=== PATIENT | female | born 1965 | race Caucasian/White ===

== ENCOUNTER → 2016-09-11 | Outpatient (CLI) | payer OTHER ==
[~2016-09-11] MED LIST: HYDROCHLOROTHIA25 MG PO; IRON1 TAB PO; LISINOPRIL10 MG PO; MULTIVITAMIN1 UDCAP PO; NASONEX17 GM; ZYRTEC10 M2 PO
--- NOTE | ~2016-09-11 | MY29 ---
[facility] A Service of [facility] RADIOLOGY TEXT RESULTS PATIENT: LAVINIA MORELOS LOCATION: [facility] : 63 UNIT #: [id number] AGE: [address]: Migdalia Zayas MD SEX: F ORDER DR: [id number] [facility] [address] [place], [place] [address] [id number] MR#: [id number] Acc #: [id number] NAME: LAVINIA MORELOS : 1965 SEX: F STUDY DATE/TIME: 09/11/2016 12:14 UNIT: [facility] ROOM: STUDY DESCRIPTION: MY CORTES SCREENING W/ CAD BILAT Attending Physician: Migdalia Zayas M.D. Referring Physician: Migdalia Zayas M.D. Ordering Physician: Migdalia Zayas M.D. Primary Care Physician: Migdalia Zayas M.D. MEDICAL IMAGING REPORT This report is preliminary unless electronic signature is present EXAM Bilateral digital screening mammogram with CAD. INDICATIONS Breast cancer screening. 50-year-old asymptomatic female. No personal or family history of breast cancer. COMPARISON STUDIES December 11, 2014, December 09, 2013, August 11, 2012, August 03, 2009, December 03, 2006. FINDINGS There are scattered fibroglandular tissues. No suspicious findings are present. IMPRESSION No mammographic evidence of malignancy. Annual screening mammography and clinical breast exam are recommended. Patients over the age of 40 are entered into a reminder system with target due date for the next mammogram. A result letter will also be sent to the patient. BIRADS: 1 Negative. Dictated by... Ricky Mccallum M.D. THIS IS AN ELECTRONICALLY VERIFIED REPORT Ricky Mccallum M.D. at 09/12/2016 9:25 AM [facility] A Service [facility] RADIOLOGY TEXT RESULTS PATIENT: LAVINIA MORELOS LOCATION: [facility] : 63 UNIT #: [id number] AGE: [address]: Migdalia Zayas MD SEX: F ORDER DR: ABDI/flaquita TD: 09/11/2016 19:28 JOB #: [id number] MEDICAL IMAGING REPORT Page 1 of 1 COPY
== END | disposition home or self-care (01) ==
LOC: CWCC 11:52
DX: Z12.31 Encounter for screening mammogram for malignant neoplasm of breast (principal)
CPT/HCPCS: G0202